=== PATIENT | female | born 1975 | race Caucasian/White ===

== ENCOUNTER → 2016-11-29 | Outpatient (CLI) | payer OTHER ==
[~2016-11-29] MED LIST: CHLO10CA7 PO; CYAN100048 PO; GADAVIST IV PRN; LBR10 PO; METH4PAK PO
--- NOTE | 2016-11-29 10:43 | DIAGNOSTIC IMAGING REPORT ---
MRI OF THE BRAIN WITHOUT AND WITH IV CONTRAST CLINICAL HISTORY: Multiple sclerosis COMPARISON STUDY: 03/31/2016 TECHNIQUE: MRI of the brain was performed from the vertex to the skull base utilizing various T1 and T2 weighted sequences. Following the IV administration of 8 mL of Gadavist contrast, additional enhanced images were obtained. FINDINGS: Sagittal T1, axial diffusion, proton density and T2 weighted axial, coronal FLAIR, and pre and post axial T1-weighted images were acquired. These were supplemented with post gadolinium coronal T1 weighted images. No intra or extra-axial mass lesions are visualized. Axial diffusion-weighted images reveal no evidence of acute or subacute infarction. There is no evidence of ventricular dilatation. Proton density T2-weighted and FLAIR images reveal increasing foci of increased T2 signal within the white matter. The lesions number approximately 13 with a new 12 mm lesion involving the right frontal subcortical white matter There are no abnormal flow voids. There is no evidence of pathologic enhancement. IMPRESSION: 1. Increasing foci of increased T2 signal within the white matter including a new 12 mm lesion within the right frontal subcortical white matter. 2. The findings are consistent with the clinical diagnosis of multiple sclerosis, although other etiologies of demyelination could appear similar 3. No evidence of pathologic enhancement Electronically signed by: Fidel Landry M.D. 11/29/2016 10:41 AM Dictated Date/Time: 11/29/2016 10:34 AM
--- NOTE | 2016-11-29 11:21 | DIAGNOSTIC IMAGING REPORT ---
MRI CERVICAL SPINE COMBO CLINICAL HISTORY: Multiple sclerosis. COMPARISON STUDY: MRI of the cervical spine dated 04/01/2016. TECHNIQUE: MRI of the cervical spine is performed utilizing various T1 and T2-weighted sequences in the axial and sagittal planes. Contrast-enhanced sequences are acquired following the IV administration of 8 cc of Gadavist. FINDINGS: Cervical spine: Vertebral body height and alignment are maintained throughout the cervical spine. There is straightening of the cervical lordosis with mild reversal centered at C4-C5. The atlantodental articulation appears preserved. The spinous processes are intact. Small anterior osteophytes are noted throughout. No destructive bony lesion is seen. Intervertebral discs: There is degenerative disc desiccation seen throughout the cervical spine. The disc spaces appear preserved. Spinal cord: The cervical spinal cord is normal in morphology. Again seen are T2 hyperintense lesions within the cervical cord. A lesion at the C4 level measures 1.2 x 0.7 cm and a lesion at C6-C7 measures 1.9 x 0.7 cm. These are less conspicuous than on the 04/01/2016 examination. Abnormal enhancement seen on the prior examination has resolved. No abnormal enhancement is seen on today's examination. No new cord lesions are identified. C2-C3: Unremarkable. C3-C4: A small posterior disc osteophyte complex is seen eccentric to the right. Uncovertebral arthropathy causes minimal right neural foraminal stenosis. The central canal and left neural foramen are clear. C4-C5: A posterior disc osteophyte complex effaces the ventral subarachnoid space. Predominantly uncovertebral arthropathy causes minimal bilateral neural foraminal stenosis. C5-C6: Mild facet arthropathy is of no consequence. The central canal and neural foramina are widely patent. C6-C7: Predominantly facet arthropathy causes mild right neural foraminal stenosis. C7-T1: Unremarkable. Soft tissues: The prevertebral and paraspinous soft tissues are normal as visualized. Brain parenchyma: Partially imaged brain parenchyma at the skull base is within normal limits. IMPRESSION: 1. There are two T2 hyperintense plaques identified in the cervical spine as detailed above, typical in appearance for the reported clinical history of multiple sclerosis. These have decreased in conspicuity from the 04/01/2016 examination. No abnormal enhancement is identified on today's study. 2. No new lesions are seen in the cervical cord. 3. Mild spondylotic change as detailed above. Dictated: 11/29/2016 10:33 AM Transcribed: 11/29/2016 11:20 AM [email or web address] Electronically signed by: Stiven Diane M.D. 11/29/2016 11:22 AM Dictated Date/Time: 11/29/2016 10:33 AM
== END | disposition home or self-care (01) ==
LOC: C.MRIBC 09:02
PROVIDERS: ATTEND Psychiatry & Neurology Neurology
DX: G35 Multiple sclerosis (principal)

== ENCOUNTER 2017-02-04 09:27 | Emergency (ER) | payer OTHER ==
[~2017-02-04] VITALS: Ht 160 cm; Wt 83.6 kg
[~2017-02-04 09:27] MED LIST changes: -CHLO10CA7 PO; -GADAVIST IV PRN; -METH4PAK PO
[2017-02-04 09:31] VITALS: TEMP 36.8; Ht 160 cm; Wt 83.6 kg
[2017-02-04] MEDS ORDERED: CHLO10CA7 PO (09:44)
[2017-02-04 11:24] LABS: BASO % 0.5 %; BASO ABS # 0.03 K/uL (0-0.2); COMPLETE YES; EOS % 2.2 %; HEMATOCRIT 39.2 % (37-47); IG% 0.3 %; LYMPH % 23.4 %; MEAN CELL VOLUME 96.3 fL (80-100); MEAN CORPUSCULAR HEMOGLOBIN 32.9 pg (25-34); MEAN CORPUSCULAR HGB CONC 34.2 g/dl (32-36); MEAN PLATELET VOLUME 10.3 fL (7.4-10.4); MONO % 6.2 %; NEUT % 67.4 %; PLATELET COUNT 192 K/uL (130-400); RED BLOOD COUNT 4.07 M/uL (4.2-5.4); WHITE BLOOD COUNT 6.41 K/uL (4.8-10.8)
--- NOTE | 2017-02-04 11:42 | EMERGENCY ROOM VISIT NOTE ---
History Report prepared by Kaila: Dionna Torres Under the Supervision of: Dr. Maria Fernanda Palma D.O. First contact with patient: 10:19 Chief Complaint: DIZZY Stated Complaint: DIZZINESS Nursing Triage Summary: started with headache that awoke pt pt reports awaking yesterday at 0400 am feeling dizzy and lightheaded pt had numbness to right side of face, decrease hearing in right hear pt was bit by a tick last week in her back and also had an abscess tooth on left side that she took "some of my daughters antibiotics" pt gait steady, no facial droop History of Present Illness The patient is a 41 year old female who presents to the Emergency Room with complaints of a severe headache starting last night. She woke up with the pain. She took some pain medication with some relief. She woke up this morning with a headache and dizziness. Last night, the patient also started having some issues with her hearing. She would hear a zipper sound in her right ear when a noise would be made. When she woke up this morning, she was unable to hear out of her right ear. This morning, she also started having numbness in the right side of upper and lower gums. She states that she feels as though there is novocaine in her mouth. Last week, the patient got a tick bite on her left flank. She is unsure of how long the tick was there for and if she completely removed it or not. The patient also reports chills. She denies fevers, chest pain, shortness of breath, or any other complaints. She has a history of multiple sclerosis. Source of History: patient Onset: last night Position: head Symptom Intensity: severe Modifying Factors (Relieving): other (pain medication with some relief) Associated Symptoms: + chills, No SOB, No chest pain, No fevers Review of Systems See HPI for pertinent positives & negatives. A total of 10 systems reviewed and were otherwise negative. Past Medical & Surgical Medical Problems: (1) Bronchitis (2) Kidney stones (3) Neuropathy (4) No pertinent past medical history Family History Cancer Diabetes mellitus FH: heart disease Hypertension Kidney stones Social History Smoking Status: Current Every Day Smoker Alcohol Use: none Drug Use: marijuana Marital Status: in relationship Housing Status: lives with family Occupation Status: employed Current/Historical Medications Scheduled Chlordiazepoxide (Librium), 10 MG PO TID Methylprednisolone (Medrol Dosepak), 1 PKT PO UD Allergies Coded Allergies: No Known Allergies (Verified , 03/15/16) Physical Exam Vital Signs Date Time Temp Pulse Resp B/P Pulse Ox O2 Delivery O2 Flow Rate FiO2 02/04/17 18:44 62 20 97/86 98 Room Air 02/04/17 17:07 70 20 115/66 100 Room Air 02/04/17 14:57 72 14 97 02/04/17 14:27 65 18 97 02/04/17 13:57 74 20 96 02/04/17 13:27 67 16 99 02/04/17 12:57 75 18 97 02/04/17 12:41 68 20 134/84 97 Room Air 02/04/17 12:40 134/84 02/04/17 12:27 67 19 98 02/04/17 11:57 57 18 99 02/04/17 11:27 62 21 100 02/04/17 10:57 77 20 02/04/17 10:31 76 02/04/17 10:18 75 20 132/73 100 Room Air 02/04/17 10:08 132/73 02/04/17 09:31 36.8 74 20 123/88 98 Room Air Physical Exam HEENT: Head - normocephalic and atraumatic. Face - normal sensation on both sides of the face. Eyes -Pupils are equal, round, and reactive to light. Extraocular eye muscles are intact and sclera are anicteric. Ears - normal TMs. Nose - moist nasal mucosa without discharge. Mouth - moist buccal mucosa. Oropharynx is nonerythematous and there is no tonsillar exudate or edema noted. Neck: Supple; no JVD, nuchal rigidity, cervical lymphadenopathy, or auscultated bruits. Heart: Regular rate and rhythm. There is a normal S1 and S2 with no murmurs, clicks, or gallops appreciated. Lungs: Clear to auscultation bilaterally with no wheezes, rales, or rhonchi. Abdomen: Soft, completely nontender, nondistended, with good bowel sounds. There are no palpable pulsatile masses or hepatosplenomegaly. There is no guarding, rigidity, or rebound noted. Back: On left flank there is a scabbed over area where she had a tick bite. No surrounding rash. Extremities: No evidence of cyanosis, clubbing, or edema. There are easily palpable peripheral pulses. Neuro:The patient is awake and alert, oriented to day, time, and place. Muscle strength is 5/5 in all 4 extremities. The patient has equal manpower development advisor strength and equal pedal push and pull. There are no cerebellar signs. Cranial nerves II through XII are intact. Medical Decision & Procedures ER Provider Diagnostic Interpretation: MRI results as stated below per my review and the radiologist's interpretation: . Brain MRI WITH AND WITHOUT CONTRAST HISTORY: Mental status change eval for worsening MS TECHNIQUE: Multiplanar multisequence MRI of the brain was performed both before and after the intravenous administration of contrast. COMPARISON STUDY: 11/29/2016 FINDINGS: Interval focus of increased signal lateral aspect right lisa. This measures 11 x 7 mm and shows partial postcontrast enhancement. Very small focus of enhancement left optic radiations The remaining foci of increased signal within the cerebellar as well as cerebral hemispheres are stable. No additional foci of postcontrast enhancement are identified. The ventricular system remains midline. The internal auditory canals are symmetric. Structures of the sella and parasellar region are unremarkable. IMPRESSION: 1. Interval development of a 11 x 7 mm enhancing active plaque lateral right lisa. 2. Small focus of postcontrast enhancement left optic radiations consistent with additional active enhancing plaque 3. This appearance is consistent with that of progressive demyelinating change with 2 active plaques Electronically signed by: Gab Self M.D. 02/04/2017 4:38 PM Dictated Date/Time: 02/04/2017 4:32 PM Laboratory Results 02/04/17 11:00 Red Blood Count 4.07, Mean Corpuscular Volume 96.3, Mean Corpuscular Hemoglobin 32.9, Mean Corpuscular Hemoglobin Concent 34.2, Mean Platelet Volume 10.3, Neutrophils (%) (Auto) 67.4, Lymphocytes (%) (Auto) 23.4, Monocytes (%) (Auto) 6.2, Eosinophils (%) (Auto) 2.2, Basophils (%) (Auto) 0.5, Neutrophils # (Auto) 4.32, Lymphocytes # (Auto) 1.50, Monocytes # (Auto) 0.40, Eosinophils # (Auto) 0.14, Basophils # (Auto) 0.03 02/04/17 11:00 Test 02/04/17 11:00 White Blood Count 6.41 K/uL (4.8-10.8) Red Blood Count 4.07 M/uL (4.2-5.4) Hemoglobin 13.4 g/dL (12.0-16.0) Hematocrit 39.2 % (37-47) Mean Corpuscular Volume 96.3 fL (80-100) Mean Corpuscular Hemoglobin 32.9 pg (25-34) Mean Corpuscular Hemoglobin Concent 34.2 g/dl (32-36) Platelet Count 192 K/uL (130-400) Mean Platelet Volume 10.3 fL (7.4-10.4) Neutrophils (%) (Auto) 67.4 % Lymphocytes (%) (Auto) 23.4 % Monocytes (%) (Auto) 6.2 % Eosinophils (%) (Auto) 2.2 % Basophils (%) (Auto) 0.5 % Neutrophils # (Auto) 4.32 K/uL (1.4-6.5) Lymphocytes # (Auto) 1.50 K/uL (1.2-3.4) Monocytes # (Auto) 0.40 K/uL (0.11-0.59) Eosinophils # (Auto) 0.14 K/uL (0-0.5) Basophils # (Auto) 0.03 K/uL (0-0.2) RDW Standard Deviation 47.9 fL (36.4-46.3) RDW Coefficient of Variation 13.6 % (11.5-14.5) Immature Granulocyte % (Auto) 0.3 % Immature Granulocyte # (Auto) 0.02 K/uL (0.00-0.02) Anion Gap 5.0 mmol/L (3-11) Est Creatinine Clear Calc Drug Dose 125.1 ml/min Estimated GFR () 130.3 Estimated GFR (Non- 112.4 BUN/Creatinine Ratio 19.1 (10-20) Calcium Level 8.8 mg/dl (8.5-10.1) Total Bilirubin 0.6 mg/dl (0.2-1) Direct Bilirubin < 0.1 mg/dl (0-0.2) Aspartate Amino Transf (AST/SGOT) 22 U/L (15-37) Alanine Aminotransferase (ALT/SGPT) 32 U/L (12-78) Alkaline Phosphatase 61 U/L (45-117) Total Protein 7.0 gm/dl (6.4-8.2) Albumin 3.5 gm/dl (3.4-5.0) Thyroid Stimulating Hormone (TSH) 1.180 uIu/ml (0.300-4.500) Lyme Disease IgG Antibody NEG (NEG) Lyme Disease IgM Antibody NEG (NEG) Laboratory results per my review. Medications Administered Medications (Trade) Dose Ordered Sig/Tracy Route Start Time Stop Time Status Last Admin Dose Admin Methylprednisolone Sodium Succinate/ Dextrose (Solu-Medrol IV/ D5 250ml) 266 ml @ 266 mls/hr TODAY@1730 IV 02/04/17 17:30 3 18:29 DC 02/04/17 17:31 266 MLS/HR Procedure Gadavist 9 mmol IV, Methylprednisolone Sodium Succinate 1000 mg/Dextrose 266 ml @ 266 mls/hr IV ED Course 1019: Past medical records reviewed. The patient was evaluated in room C09. A complete history and physical exam was performed. An IV lock was initiated and labs are drones above. 1328: I reevaluated the patient who is resting comfortably. 1355: I discussed the patient's case with Dr. Lake, neurologist with [facility]. He recommended MRI of the brain and high dose of Solu- Medrol after the MRI for possible multiple sclerosis exacerbation. 1455: The patient is agreeable to an MRI. She states that her current symptoms are similar to her past symptoms with MS exacerbation, because she has been having difficulty writing with her right hand. 1655: I discussed the patient's case with Dr. Lake, who recommended a gram of Solu-Medrol for 3 days, followed by a Medrol Dosepak. 1730: 1000 mg Solu-Medrol IV. Upon reevaluation, the patient is resting comfortably. I discussed findings and results with her. She verbalized agreement of the treatment plan. She was discharged home. Medical Decision This is a 41 year old female who presents to the Emergency Room with a chief complaint of headache. Differential diagnosis includes but is not limited to lyme disease, CVA, TIA, exacerbation of MS, lyme meningitis. Her labs showed normal white blood cell count, stable H&H, normal TSH and glucose, normal electrolytes and renal function, lyme titer is negative. This is a 47-year-old female patient with a history of multiple sclerosis who presents to the emergency department with headache, numbness of her gums in the right side of her mouth and loss of hearing to the right ear. An MRI was performed and showed new lesions noted particularly in the lisa. This was concerning for exacerbation of her MS. She was given 1000 mg of IV solu Medrol we made arrangements for the patient to come back to the [facility] for 2 subsequent doses of IV Solu-Medrol over the weekend. She will then take a Medrol Dosepak. She will follow-up with neurology this week. Consults Time Called: 1327 Consulting Physician: Dr. Lake, neurologist with [facility] Returned Call: [phone] I discussed the patient's case with Dr. Lake, neurologist with [facility]. He recommended MRI of the brain and high dose of Solu-Medrol after the MRI for possible multiple sclerosis exacerbation. Impression Primary Impression: Multiple sclerosis exacerbation Scribe Attestation The scribe's documentation has been prepared under my direction and personally reviewed by me in its entirety. I confirm that the note above accurately reflects all work, treatment, procedures, and medical decision making performed by me. Departure Information Dispostion Home / Self-Care Prescriptions Methylprednisolone (MEDROL DOSEPAK) 4 Mg Gildardo 1 PKT PO UD for 6 Days, #1 PKT Prov: Maria Fernanda Palma, Carmen 02/04/17 Referrals No Doctor, Assigned (PCP) Eder Lake M.D. Forms HOME CARE DOCUMENTATION FORM, IMPORTANT VISIT INFORMATION Patient Instructions My [facility] Additional Instructions Rest. Return tomorrow and Tuesday to the [facility] at 8am for IV steroids. Start the prescription of steroids on Tuesday
[2017-02-04 11:44] LABS: ALT/SGPT 32 U/L (12-78); AST/SGOT 22 U/L (15-37); BLOOD UREA NITROGEN 11 mg/dl (7-18); BUN/CREATININE RATIO 19.1 (10-20); CALCIUM 8.8 mg/dl (8.5-10.1); CARBON DIOXIDE 28 mmol/L (21-32); CHLORIDE 106 mmol/L (98-107); GLUCOSE 93 mg/dl (70-99); SODIUM 139 mmol/L (136-145)
[2017-02-04 11:55] LABS: ALKALINE PHOSPHATASE 61 U/L (45-117)
[2017-02-04 12:43] LABS: LYME DISEASE AB IGG NEG (NEG); LYME DISEASE AB IGM NEG (NEG)
[2017-02-04] MEDS ORDERED: GADAVIST IV PRN (16:30)
--- NOTE | 2017-02-04 16:39 | DIAGNOSTIC IMAGING REPORT ---
Brain MRI WITH AND WITHOUT CONTRAST HISTORY: Mental status change eval for worsening MS TECHNIQUE: Multiplanar multisequence MRI of the brain was performed both before and after the intravenous administration of contrast. COMPARISON STUDY: 11/29/2016 FINDINGS: Interval focus of increased signal lateral aspect right lisa. This measures 11 x 7 mm and shows partial postcontrast enhancement. Very small focus of enhancement left optic radiations The remaining foci of increased signal within the cerebellar as well as cerebral hemispheres are stable. No additional foci of postcontrast enhancement are identified. The ventricular system remains midline. The internal auditory canals are symmetric. Structures of the sella and parasellar region are unremarkable. IMPRESSION: 1. Interval development of a 11 x 7 mm enhancing active plaque lateral right lisa. 2. Small focus of postcontrast enhancement left optic radiations consistent with additional active enhancing plaque 3. This appearance is consistent with that of progressive demyelinating change with 2 active plaques Electronically signed by: Gab Self M.D. 02/04/2017 4:38 PM Dictated Date/Time: 02/04/2017 4:32 PM
[2017-02-04] MEDS ORDERED: METHYLPREDNISOLONE 1000 MG/16 ML IV STA (16:53)
[2017-02-04] MEDS ORDERED: methylPREDNISolone 1000 MG in DEXTROSE 5% 250 ML IV SCH (17:30)
[2017-02-04] MEDS ORDERED: METH4PAK PO (17:50)
[2017-02-04 18:44] VITALS: BP 97/86; PULSE 62; O2SAT 98
== END 2017-02-04 19:03 | disposition home or self-care (01) ==
LOC: C.EDB 09:28 → C.EDC 19:03
DX: G35 Multiple sclerosis (principal); Z87.442 Personal history of urinary calculi; G62.9 Polyneuropathy, unspecified; Z80.9 Family history of malignant neoplasm, unspecified; Z83.3 Family history of diabetes mellitus; Z82.49 Family history of ischemic heart disease and other diseases of the circulatory system; Z84.1 Family history of disorders of kidney and ureter; F17.210 Nicotine dependence, cigarettes, uncomplicated; Z79.899 Other long term (current) drug therapy

== ENCOUNTER → 2017-09-18 | Outpatient (CLI) | payer OTHER ==
[~2017-09-18] MED LIST changes: +CHLO10CA7 PO; -CYAN100048 PO; -LBR10 PO
== END | disposition home or self-care (01) ==
LOC: C.LAB 01:01
DX: Z02.83 Encounter for blood-alcohol and blood-drug test (principal)